=== PATIENT | female | born 1985 | race Caucasian/White ===

== ENCOUNTER 2016-10-24 10:27 | Emergency (ER) | payer MEDICAID ==
--- NOTE | 2016-10-24 10:43 | Emergency Department Record ---
History of Present Illness - General Chief complaint: Extremity Problem Stated complaint: R KNEE INJURY Time Seen by Provider: 10/24/16 10:42 Source: Patient Mode of Arrival: Ambulatory Limitations: No limitations - History of Present Illness Initial comments: The patient is here due to injuring her knee yesterday afternoon at work. She states she was walking and slipped on the ice and landed directly on the R knee. It has been painful since and she was able to finish her shift. She denies any other injuries. MD Complaint: Extremity pain Onset/Timin -: Days(s) Location: Right, Knee History of Same: No - Related Data Home Medications Medication Instructions Recorded Confirmed Last Taken Acetaminophen with Codeine 1 tab PO Q6H 01/13/15 10/24/16 1 Day Ago [Tylenol with Codeine #3] Acetaminophen with Codeine 10 ml PO Q6H 01/13/15 10/24/16 1 Day Ago [Tylenol with Codeine #3] Cyclobenzaprine HCl [Flexeril] 10 mg PO QHS 01/13/15 10/24/16 1 Day Ago Labetalol HCl [Trandate] 100 mg PO DAILY 01/13/15 10/24/16 1 Day Ago Ranitidine HCl [Zantac] 150 mg PO BID 01/13/15 10/24/16 1 Day Ago Sertraline HCl [Zoloft] 100 mg PO DAILY 01/13/15 10/24/16 1 Day Ago Hydrochlorothiazide 12.5 mg PO DAILY 11/07/15 10/24/16 1 Day Ago Previous Rx's Medication Instructions Recorded Ibuprofen [Motrin 600Mg] 600 mg PO Q6H #20 tablet 11/07/15 Allergies Allergy/AdvReac Type Severity Reaction Status Date / Time Some kind of eyedrop for Allergy SWELLING Uncoded 10/24/16 10:36 pink eye OF THE FACE Travel Screening - Travel/Exposure Within Last 30 Days Have you traveled within the last 30 days?: No - Travel/Exposure Within Last Year Have you traveled outside the [place] in the last year?: No - Additonal Travel Details Have you been exposed to anyone with a communicable illness?: No - Travel Symptoms Symptom Screening: None Review of Systems Constitutional: Denies: Chills, Fever Eyes: Denies: Eye discharge ENT: Denies: Congestion Respiratory: Denies: Cough, Dyspnea Past Medical History - SOCIAL HISTORY Smoking Status: Current every day smoker Alcohol Use: None, Rare Drug Use Detail:: Marijuana - RESPIRATORY Hx Respiratory Disorders: No - CARDIOVASCULAR Hx Cardio Disorders: Yes Hx Hypertension: Yes - NEURO Hx Neuro Disorders: Yes Hx Headaches: Yes (hx) - GI Hx GI Disorders: No - Hx Genitourinary Disorders: Yes Comment:: Polycystic Ovaries - ENDOCRINE Hx Endocrine Disorders: Yes Hx Diabetes: Yes (hx of gestational) - MUSCULOSKELETAL Hx Musculoskeletal Disorders: No - PSYCH Hx Psych Problems: Yes Hx Anxiety: Yes Hx Depression: Yes - HEMATOLOGY/ONCOLOGY Hx Hematology/Oncology Disorders: No Family Medical History Any Significant Family History?: Yes Family Hx Comment (NOT TO BE USED IN PLACE OF ITEMS BELOW): Heart Attack- Dad, brother, and grandfather Hx Cancer: Mother, Grandparents Hx HTN: Father, Mother, Brother/Sister Physical Exam - General General Appearance: Alert, Oriented x3, Cooperative, No acute distress - Head Head exam: Atraumatic, Normocephalic, Normal inspection - Eye Eye exam: Normal appearance, PERRL - Extremities Extremities exam: Full ROM (with pain on extreme flexion.), Tenderness (There is tenderness to the patellar area.), Other (There is no ligamentous laxity. The R knee is stable with no obvious ligamentous injury.). negative: Normal inspection (There is a minor abrasion to the R knee prepatellar area.), Joint swelling, Pedal edema - Neurological Neurological exam: Other (The RLE is NVI distally.). negative: Motor sensory deficit Course Vital Signs 10/24/16 10:29 Temperature 98.0 F Pulse Rate 118 H Respiratory 18 Rate Blood Pressure 161/87 Pulse Ox 100 - Reevaluation(s) Reevaluation #1: I did discuss the xray results with the patient. We will have the patient off work today and tomorrow and will have her ice and elevate the knee for 2 days. If she is having pain on Tuesday she is to F/U with her work Occupation Health Provider for further eval. 10/24/16 11:46 Medical Decision Making - Data Complexity MDM Data: X-Ray Ordered and/or Reviewed - Radiology Data Radiology results: Report reviewed (R knee: No acute changes. ) Disposition Disposition: Discharge Clinical Impression: Contusion, knee Qualifiers: Encounter type: initial encounter Laterality: right Qualified Code(s): S80.01XA - Contusion of right knee, initial encounter Disposition: Home, Self-Care Instructions: Knee Pain (ED) Additional Instructions: Please wear the tash wrap and ice and elevate the knee for 2 days. Take your home pain medicines as needed. Please see your work Occupational Health Provider on Tuesday if still having any significant pain. Forms: Patient Portal Access Time of Disposition: 11:49
[2016-10-24] MEDS ORDERED: KETOROLAC 30 MG/ML VIAL IM ONE (11:21)
[2016-10-24] MEDS ORDERED: Diph,Pert(Acell),Tet Vac 0.5 ML SYR IM ONE (11:45)
--- NOTE | 2016-10-28 07:38 | RADIOLOGY REPORT ---
EXAM: RIGHT KNEE, FOUR VIEWS HISTORY: FALL. TECHNIQUE: Four views of the right knee were obtained. FINDINGS: The soft tissues are unremarkable. Mild knee joint effusion. Suggestion of minimal degenerative change medial tibial femoral compartment where there is slight marginal osteophytosis. Tiny 2 mm sized range calcifications are noted posteromedially possibly calcified loose bodies. No clearly acute osseous abnormality. IMPRESSION: 1. NO ACUTE RIGHT KNEE ABNORMALITY. 2. DEGENERATIVE CHANGES. JOB NUMBER: [id number] [facility]
== END 2016-10-24 12:13 | disposition home or self-care (01) ==
LOC: ER 10:27
DX: S80.01XA Contusion of right knee, initial encounter (principal); W00.0XXA Fall on same level due to ice and snow, initial encounter; Y92.511 Restaurant or cafe as the place of occurrence of the external cause; Y99.0 Civilian activity done for income or pay
CPT/HCPCS: 99283; 96372; 99284; 73564; J1885; 90715

== ENCOUNTER 2018-07-10 22:22 | Emergency (ER) | payer MEDICAID ==
[2018-07-10] MEDS ORDERED: MAGNESIUM HYDROXIDE/AL HYDROX 30 ML, LIDOCAINE VISC 2% 15ML 15 ML PO ONE ×2 (23:01)
[2018-07-10] MEDS ORDERED: HYOSCYAMINE SULFATE ODT 0.125 MG TAB.SUBL SL ONE (23:01)
--- NOTE | 2018-07-10 23:04 | Emergency Department Record ---
History of Present Illness - General Chief Complaint: Abdominal Pain Stated Complaint: ABDOMINAL PAIN Time Seen by Provider: 07/10/18 22:58 Source: Patient Mode of Arrival: Ambulatory Limitations: No limitations - History of Present Illness Initial Comments: 33 yo female presents to ED for evaluation of epigastric abdominal pain symptoms that began approximately 8.5 hours ago. Patient denies nausea, vomiting, or recent illness. Patient also denies fevers, chills, or history of previous symptoms. Patient denies previous history of abdominal pain symptoms, reports previous , denies other abdominal surgery. Patient denies health problems at her baseline. MD Complaint: Abdominal pain Onset/Timin -: Hour(s) Location: Epigastric Radiation: None Severity: Moderate Quality: Aching Consistency: Constant Improves With: Nothing Worsens With: Nothing Associated Symptoms: Denies other symptoms - Related Data Previous Rx's Medication Instructions Recorded Ibuprofen [Motrin 600Mg] 600 mg PO Q6H #20 tablet 11/07/15 Allergies Allergy/AdvReac Type Severity Reaction Status Date / Time Some kind of eyedrop for Allergy SWELLING Uncoded 10/24/16 10:36 pink eye OF THE FACE Review of Systems Constitutional: Denies: Chills, Fever, Malaise, Night sweats Eyes: Denies: Eye discharge, Eye pain ENT: Denies: Congestion, Ear pain, Epistaxis Respiratory: Denies: Cough, Dyspnea Cardiovascular: Denies: Chest pain, Dyspnea on exertion Endocrine: Denies: Fatigue Gastrointestinal: Reports: Abdominal pain. Denies: Nausea, Vomiting Genitourinary: Denies: Incontinence, Retention Musculoskeletal: Denies: Arthralgia, Back pain Skin: Denies: Bruising, Change in color Neurological: Denies: Abnormal gait, Confusion, Headache, Seizure Psychiatric: Denies: Anxiety Hematological/Lymphatic: Denies: Anemia, Blood Clots Past Medical History - SOCIAL HISTORY Smoking Status: Current every day smoker Drug Use Detail:: Marijuana - RESPIRATORY Hx Respiratory Disorders: No - CARDIOVASCULAR Hx Cardio Disorders: Yes Hx Hypertension: Yes - NEURO Hx Neuro Disorders: Yes Hx Headaches: Yes (hx) - GI Hx GI Disorders: No - Hx Genitourinary Disorders: Yes Comment:: Polycystic Ovaries - ENDOCRINE Hx Endocrine Disorders: Yes Hx Diabetes: Yes (hx of gestational) - MUSCULOSKELETAL Hx Musculoskeletal Disorders: No - PSYCH Hx Psych Problems: Yes Hx Anxiety: Yes Hx Depression: Yes - HEMATOLOGY/ONCOLOGY Hx Hematology/Oncology Disorders: No Family Medical History Family Hx Comment (NOT TO BE USED IN PLACE OF ITEMS BELOW): Heart Attack- Dad, brother, and grandfather Hx Cancer: Mother, Grandparents Hx HTN: Father, Mother, Brother/Sister Physical Exam - General General Appearance: Alert, Oriented x3, Cooperative, Moderate distress Limitations: No limitations - Head Head exam: Atraumatic, Normocephalic, Normal inspection Head exam detail: negative: Abrasion, Contusion, Ramirez's sign, General tenderness, Hematoma, Laceration - Eye Eye exam: Normal appearance. negative: Conjunctival injection, Periorbital swelling, Periorbital tenderness, Scleral icterus - ENT Ear exam: negative: Auricular hematoma, Auricular trauma Nasal Exam: negative: Active bleeding, Discharge, Dried blood, Foreign body Mouth exam: negative: Drooling, Laceration, Muffled voice, Tongue elevation - Neck Neck exam: Normal inspection. negative: Meningismus, Tenderness - Respiratory Respiratory exam: Normal lung sounds bilaterally. negative: Rales, Respiratory distress, Rhonchi, Stridor - Cardiovascular Cardiovascular Exam: Regular rate, Normal rhythm, Normal heart sounds - GI/Abdominal GI/Abdominal exam: Soft, Other (No focal area of pain with palpation on examination, no rebound, guareding present. Pain symptoms appear subjective on physical examination.). negative: Rebound, Rigid, Tenderness - Rectal Rectal exam: Deferred - exam: Deferred - Extremities Extremities exam: Normal inspection. negative: Calf tenderness, Pedal edema, Tenderness - Back Back exam: Denies: CVA tenderness (R), CVA tenderness (L) - Neurological Neurological exam: Alert, Normal gait, Oriented X3 - Psychiatric Psychiatric exam: Normal affect, Normal mood - Skin Skin exam: Normal color. negative: Abrasion Type of lesion: negative: abrasion Course Vital Signs 07/10/18 22:55 Temperature 97.9 F Pulse Rate [ 58 L Pulse Ox Probe] Respiratory 20 Rate Blood Pressure 150/88 [Left Arm] Pulse Ox 97 - Reevaluation(s) Reevaluation #1: 07/10/18 23:40 Labs reviewed and are grossly unremarkable for an acute process. Reevaluation #2: 07/11/18 01:48 CT Abdomen/Pelvis: Numerous GB stones. Prominence of the right uterus and uterine segment. Trace FF pelvis: Patient reassessed and reports that she is feeling much improved (reports only mild pain symptoms). Patient was updated on all results, reports that she will follow-up with her PCP (Erick) for further evaluation and possible HIDA vs. US gallbladder. Offered the patient surgical consultation in the [facility] specialty [facility], patient declined. Patient will return for any worsening of her symptoms. Medical Decision Making - Lab Data Result diagrams: 07/10/18 23:10 07/10/18 23:10 Disposition Disposition: Discharge Clinical Impression: Epigastric abdominal pain Disposition: Home, Self-Care Condition: (2) Stable Instructions: Abdominal Pain (ED) Additional Instructions: Return to ED if your symptoms worsen or if you have any concerns. Follow-up with Dr. Suarez in 3-5 days as directed. Recommend US of the abdomen to evaluate the uterus/gallbladder as an outpatient as well as possible HIDA scan for further evaluation. Forms: Patient Portal Access Time of Disposition: 01:51 Quality - Quality Measures Quality Measures: N/A - Blood Pressure Screening Does Patient Have Any of the Following: No Blood Pressure Classification: Normal BP Reading Systolic Measurement: 119 Diastolic Measurement: 65 Screening for High Blood Pressure: < Normal BP, F/U Not Required > [G8783]
[2018-07-10 23:12] LABS: URINE APPEARANCE CLEAR; URINE BILIRUBIN NEGATIVE (NEGATIVE); URINE BLOOD LARGE (NEGATIVE); URINE COLOR YELLOW; URINE GLUCOSE (UA) NEGATIVE (NEGATIVE); URINE KETONE NEGATIVE (NEGATIVE); URINE LEUKOCYTE ESTERASE NEGATIVE (NEGATIVE); URINE NITRITE NEGATIVE (NEGATIVE); URINE PROTEIN TRACE (NEGATIVE); URINE UROBILINOGEN 0.2 E.U./dL (0.20 - 1.00)
[2018-07-10 23:18] LABS: BASO % 0.3 % (0-6); EOS % 1.3 % (0-6); GRAN % 63.3 % (47-80); HEMATOCRIT 44.7 % (35.0-47.0); HEMOGLOBIN 14.5 gm/dl (11.6-16.0); LYMPH % 23.7 % (16-45); MEAN CORPUSCULAR HEMOGLOBIN 28.9 pg (27-33); MEAN CORPUSCULAR HGB CONC 32.4 g/dl (32-36); MEAN PLATELET VOLUME 10.4 fl (7.4-10.4); MONO % 11.4 % (0-9); PLATELET COUNT 261 K/uL (130-400); RED BLOOD COUNT 5.02 M/uL (3.80-5.40); RED CELL DISTRIBUTION WIDTH 15.2 % (11.5-14.5)
[2018-07-10 23:19] LABS: URINE EPITHELIAL CELLS 0 - 2 (FEW); URINE WBC 0 - 2 (0-2/hpf)
[2018-07-10 23:20] LABS: HCG,QUALITATIVE URINE NEGATIVE (NEGATIVE); URINE BACTERIA FEW
[2018-07-10 23:30] LABS: BLOOD UREA NITROGEN 19 mg/dL (6-20); EST GLOMERULAR FILTRATION RATE > 60 mL/min
[2018-07-10 23:31] LABS: TOTAL PROTEIN 7.4 g/dL (6.6-8.7)
[2018-07-10 23:33] LABS: GLUCOSE,RANDOM 97 mg/dL (74-109)
[2018-07-10 23:35] LABS: ALB/GLOB RATIO 1.7 (1.1-1.8); ALBUMIN 4.7 g/dL (4.0-5.0); ALKALINE PHOSPHATASE 56 U/L (35-104); ALT/SGPT 15 U/L (<33); AST/SGOT 24 U/L (10.0-35.0); LIPASE 48 U/L (13-60)
[2018-07-10] MEDS ORDERED: ACETAMINOPHEN 1,000 MG/100 ML BTL IVPB ONE (23:47)
== END 2018-07-11 02:04 | disposition home or self-care (01) ==
LOC: ER 22:22
DX: R10.13 Epigastric pain (principal); I10 Essential (primary) hypertension; F17.210 Nicotine dependence, cigarettes, uncomplicated
CPT/HCPCS: 99284 ×2; 96365; 83690; 85025; 80053; 81001; 81025; 74177; Q9967; J1980

== ENCOUNTER 2019-05-01 16:30 | Emergency (ER) | payer MEDICAID ==
[2019-05-01 17:06] LABS: URINE APPEARANCE CLEAR; URINE BILIRUBIN NEGATIVE (NEGATIVE); URINE BLOOD NEGATIVE (NEGATIVE); URINE COLOR YELLOW; URINE GLUCOSE (UA) NEGATIVE (NEGATIVE); URINE KETONE NEGATIVE (NEGATIVE); URINE LEUKOCYTE ESTERASE NEGATIVE (NEGATIVE); URINE NITRITE NEGATIVE (NEGATIVE); URINE PROTEIN NEGATIVE (NEGATIVE); URINE UROBILINOGEN 0.2 E.U./dL (0.20 - 1.00)
[2019-05-01 17:08] LABS: HCG,QUALITATIVE URINE POSITIVE (NEGATIVE)
[2019-05-01 17:34] LABS: ABSOLUTE NEUTROPHIL COUNT 8.29; BASO % 0.3 % (0-6); EOS % 1.6 % (0-6); HEMATOCRIT 41.6 % (35.0-47.0); HEMOGLOBIN 13.7 gm/dl (11.6-16.0); LYMPH % 18.3 % (16-45); MEAN CELL VOLUME 91.2 fl (81-97); MEAN CORPUSCULAR HGB CONC 32.9 g/dl (32-36); MEAN PLATELET VOLUME 10.1 fl (7.4-10.4); MONO % 7.8 % (0-9); PLATELET COUNT 256 K/uL (130-400); RED BLOOD COUNT 4.56 M/uL (3.80-5.40); RED CELL DISTRIBUTION WIDTH 15.8 % (11.5-14.5); WHITE BLOOD COUNT W/O DIFF 11.5 K/uL (4.2-12.2)
[2019-05-01 17:47] LABS: BLOOD UREA NITROGEN 13 mg/dL (6-20); CREATININE 0.5 mg/dL (0.5-0.9); EST GLOMERULAR FILTRATION RATE > 60 mL/min
[2019-05-01 17:50] LABS: GLUCOSE,RANDOM 87 mg/dL (74-109)
--- NOTE | 2019-05-01 18:46 | Emergency Department Record ---
History of Present Illness - General Chief Complaint: Back Pain/Injury Stated Complaint: BACK PAIN,CRAMPS Time Seen by Provider: 05/01/19 17:08 Source: Patient Mode of Arrival: Ambulatory Limitations: No limitations - History of Present Illness Initial Comments: pt has been extra thirsty and urinating alot. she has been tired and her breast hurt. her lmp was in january. she has very irreg menses. she has polycystic ovaries. she has no pain Onset/Timin -: Week(s) Similar Symptoms Previously: No Place: Home Radiation: Abdomen Severity: Mild Severity scale (1-10): 3 Quality: Aching Consistency: Constant Improves With: None Worsens With: None Context: Unknown Associated Symptoms: Nausea/vomiting - Related Data Home Medications Medication Instructions Recorded Confirmed Last Taken Acetaminop W/ Codeine 300/30Mg 1 tab PO Q6H 05/01/19 05/01/19 Unknown [Tylenol #3] Previous Rx's Medication Instructions Recorded Ibuprofen [Motrin 600Mg] 600 mg PO Q6H #20 tablet 11/07/15 Allergies Allergy/AdvReac Type Severity Reaction Status Date / Time Some kind of eyedrop for Allergy SWELLING Uncoded 10/24/16 10:36 pink eye OF THE FACE Travel Screening - Travel/Exposure Within Last 30 Days Have you traveled within the last 30 days?: No Review of Systems Reviewed: No additional complaints except as noted below Constitutional: Reports: As per HPI. Denies: Chills, Fever, Malaise, Night sweats, Weakness, Weight change Eyes: Reports: As per HPI. Denies: Eye discharge, Eye pain, Photophobia, Vision change ENT: Reports: As per HPI. Denies: Congestion, Dental pain, Ear pain, Epistaxis, Hearing loss, Throat pain Respiratory: Reports: As per HPI. Denies: Cough, Dyspnea, Hemoptysis, Stridor, Wheezes Cardiovascular: Reports: As per HPI. Denies: Arrhythmia, Chest pain, Dyspnea on exertion, Edema, Murmurs, Orthopnea, Palpitations, Paroxysmal nocturnal dyspnea, Rheumatic Fever, Syncope Endocrine: Reports: As per HPI, Fatigue, Polydipsia, Polyuria. Denies: Heat or cold intolerance Gastrointestinal: Reports: As per HPI. Denies: Abdominal pain, Constipation, Diarrhea, Hematemesis, Hematochezia, Melena, Nausea, Vomiting Genitourinary: Reports: As per HPI. Denies: Abnormal menses, Discharge, Dyspareunia, Dysuria, Frequency, Hematuria, Incontinence, Retention, Urgency Musculoskeletal: Reports: As per HPI. Denies: Arthralgia, Back pain, Gout, Joint swelling, Myalgia, Neck pain Skin: Reports: As per HPI. Denies: Bruising, Change in color, Change in hair/nails, Lesions, Pruritus, Rash Neurological: Reports: As per HPI. Denies: Abnormal gait, Confusion, Headache, Numbness, Paresthesias, Seizure, Tingling, Tremors, Vertigo, Weakness Psychiatric: Reports: As per HPI. Denies: Anxiety, Auditory hallucinations, Depression, Homicidal thoughts, Suicidal thoughts, Visual hallucinations Hematological/Lymphatic: Reports: As per HPI. Denies: Anemia, Blood Clots, Easy bleeding, Easy bruising, Swollen glands Past Medical History - SOCIAL HISTORY Smoking Status: Current every day smoker Alcohol Use: None Drug Use: Occasional Drug Use Detail:: Marijuana - RESPIRATORY Hx Respiratory Disorders: No - CARDIOVASCULAR Hx Cardio Disorders: Yes Hx Hypertension: Yes - NEURO Hx Neuro Disorders: Yes Hx Headaches: Yes (hx) - GI Hx GI Disorders: Yes Hx Reflux: Yes - Hx Genitourinary Disorders: Yes Comment:: Polycystic Ovaries - ENDOCRINE Hx Endocrine Disorders: Yes Hx Diabetes: Yes (hx of gestational) - MUSCULOSKELETAL Hx Musculoskeletal Disorders: No - PSYCH Hx Psych Problems: Yes Hx Anxiety: Yes Hx Depression: Yes - HEMATOLOGY/ONCOLOGY Hx Hematology/Oncology Disorders: No Family Medical History Any Significant Family History?: Yes Family Hx Comment (NOT TO BE USED IN PLACE OF ITEMS BELOW): Heart Attack- Dad, brother, and grandfather Hx Cancer: Mother, Grandparents Hx HTN: Father, Mother, Brother/Sister Physical Exam - General General Appearance: Alert, Oriented x3, Cooperative, No acute distress - Head Head exam: Normal inspection - Eye Eye exam: Normal appearance, PERRL, EOMI Pupils: Normal accommodation - ENT ENT exam: Normal exam, Mucous membranes moist, Normal external ear exam, Normal orophraynx Ear exam: Normal external inspection. negative: External canal tenderness Nasal Exam: Normal inspection. negative: Discharge, Sinus tenderness Mouth exam: Normal external inspection, Tongue normal Teeth exam: Normal inspection. negative: Dental caries Throat exam: Normal inspection. negative: Tonsillar erythema, Tonsillar exudate - Neck Neck exam: Normal inspection, Full ROM. negative: Tenderness - Respiratory Respiratory exam: Normal lung sounds bilaterally. negative: Respiratory distress - Cardiovascular Cardiovascular Exam: Regular rate, Normal rhythm, Normal heart sounds - GI/Abdominal GI/Abdominal exam: Soft, Normal bowel sounds. negative: Tenderness - Rectal Rectal exam: Deferred - exam: Deferred - Extremities Extremities exam: Normal inspection, Full ROM, Normal capillary refill. negative: Tenderness - Back Back exam: Reports: Normal inspection, Full ROM. Denies: Muscle spasm, Rash noted, Tenderness - Neurological Neurological exam: Alert, CN II-XII intact, Normal gait, Oriented X3 - Psychiatric Psychiatric exam: Normal affect, Normal mood - Skin Skin exam: Dry, Intact, Normal color, Warm Course Vital Signs 05/01/19 16:54 Temperature 98.0 F Pulse Rate 77 Respiratory 20 Rate Blood Pressure 155/101 Pulse Ox 100 - Reevaluation(s) Reevaluation #1: 05/01/19 18:50 pt has known hx of htn. Medical Decision Making - Lab Data Result diagrams: 05/01/19 17:25 05/01/19 17:25 Lab Results 05/01/19 05/01/19 05/01/19 Range/Units 17:00 17:25 17:25 WBC 11.5 (4.2-12.2) K/uL RBC 4.56 (3.80-5.40) M/uL Hgb 13.7 (11.6-16.0) gm/dl Hct 41.6 (35.0-47.0) % MCV 91.2 (81-97) fl MCH 30.0 (27-33) pg MCHC 32.9 (32-36) g/dl RDW 15.8 H (11.5-14.5) % Plt Count 256 (130-400) K/uL MPV 10.1 (7.4-10.4) fl Gran % 72.0 (47-80) % Lymphocytes % 18.3 (16-45) % Monocytes % 7.8 (0-9) % Eosinophils % 1.6 (0-6) % Basophils % 0.3 (0-6) % Absolute Neutrophils 8.29 Sodium 139 (136-145) mmol/L Potassium 3.9 (3.4-4.5) mmol/L Chloride 102 (98-107) mmol/L Carbon Dioxide 24.0 (22-29) mmol/L Anion Gap 13.0 (7-16) BUN 13 (6-20) mg/dL Creatinine 0.5 (0.5-0.9) mg/dL Estimated GFR > 60 mL/min Random Glucose 87 (74-109) mg/dL Calcium 10.0 (8.6-10.0) mg/dL TSH (0.270-4.20) uIU/mL Urine Color Yellow Urine Appearance Clear Urine pH 6.0 (5.0-8.0) Ur Specific Rohwer 1.020 (1.002-1.030) Urine Protein Negative (NEGATIVE) Urine Glucose (UA) Negative (NEGATIVE) Urine Ketones Negative (NEGATIVE) Urine Blood Negative (NEGATIVE) Urine Nitrite Negative (NEGATIVE) Urine Bilirubin Negative (NEGATIVE) Urine Urobilinogen 0.2 (0.20 - 1.00) E.U./dL Ur Leukocyte Esterase Negative (NEGATIVE) Urine HCG, Qual Positive H (NEGATIVE) 05/01/19 Range/Units 17:25 WBC (4.2-12.2) K/uL RBC (3.80-5.40) M/uL Hgb (11.6-16.0) gm/dl Hct (35.0-47.0) % MCV (81-97) fl MCH (27-33) pg MCHC (32-36) g/dl RDW (11.5-14.5) % Plt Count (130-400) K/uL MPV (7.4-10.4) fl Gran % (47-80) % Lymphocytes % (16-45) % Monocytes % (0-9) % Eosinophils % (0-6) % Basophils % (0-6) % Absolute Neutrophils Sodium (136-145) mmol/L Potassium (3.4-4.5) mmol/L Chloride (98-107) mmol/L Carbon Dioxide (22-29) mmol/L Anion Gap (7-16) BUN (6-20) mg/dL Creatinine (0.5-0.9) mg/dL Estimated GFR mL/min Random Glucose (74-109) mg/dL Calcium (8.6-10.0) mg/dL TSH 0.49 (0.270-4.20) uIU/mL Urine Color Urine Appearance Urine pH (5.0-8.0) Ur Specific Rohwer (1.002-1.030) Urine Protein (NEGATIVE) Urine Glucose (UA) (NEGATIVE) Urine Ketones (NEGATIVE) Urine Blood (NEGATIVE) Urine Nitrite (NEGATIVE) Urine Bilirubin (NEGATIVE) Urine Urobilinogen (0.20 - 1.00) E.U./dL Ur Leukocyte Esterase (NEGATIVE) Urine HCG, Qual (NEGATIVE) Disposition Disposition: Discharge Clinical Impression: Qualifiers: Weeks of gestation: unspecified Qualified Code(s): Z34.90 - Encounter for supervision of normal , unspecified, unspecified trimester Hypertension Qualifiers: Hypertension type: essential hypertension Qualified Code(s): I10 - Essential (primary) hypertension Disposition: Home, Self-Care Condition: (1) Good Instructions: (ED) Additional Instructions: follow up with used car renovator. return sooner if worse Quality - Quality Measures Quality Measures: N/A - Blood Pressure Screening Does Patient Have Any of the Following: Active Dx of HTN Blood Pressure Classification: Hypertensive Reading Systolic Measurement: 155 Diastolic Measurement: 101 Screening for High Blood Pressure: Patient Exclusion, Hx of HTN [G9744]
== END 2019-05-01 19:10 | disposition home or self-care (01) ==
LOC: ER 16:30
DX: O26.899 Other specified pregnancy related conditions, unspecified trimester (principal); I10 Essential (primary) hypertension; F17.210 Nicotine dependence, cigarettes, uncomplicated
CPT/HCPCS: 80048; 81003; 81025; 84443; 85025; 99283